=== PATIENT | female | born 1990 ===

== ENCOUNTER 2017-09-08 10:53 | Emergency (ER) | payer OTHER ==
[2017-09-08 10:54] VITALS: BMI 28.8
[2017-09-08 11:30] VITALS: BP 124/76; PULSE 78; RESP 16; TEMP 98.5; O2SAT 98
--- NOTE | 2017-09-08 12:12 | RAD ---
PROCEDURE: Right Ankle Radiographs. HISTORY: injury COMPARISON: None available. FINDINGS: BONES: No acute displaced fracture. JOINTS: No dislocation. SOFT TISSUES: Mild soft tissue swelling. No evidence of radiopaque foreign body. OTHER FINDINGS: None. IMPRESSION: Mild soft tissue swelling. No acute displaced fracture, dislocation, or significant joint effusion identified. If symptoms persist or if there is clinical concern, x-ray follow-up in 7-10 days should be considered.
--- NOTE | 2017-09-08 12:24 | C.PDOC ---
History Of Present Illness 27 year old female presents to the ED via EMS for evaluation of right ankle pain that occurred prior to arrival. Patient states she was at a daycare where she accidentally twisted her ankle and is currently c/o swelling right ankle. Patient denies weakness, numbness, sensory deficit. Time Seen by Provider: 09/08/17 11:42 Chief Complaint (Nursing): Lower Extremity Problem/Injury History Per: Patient History/Exam Limitations: no limitations Onset/Duration Of Symptoms: Hrs Current Symptoms Are (Timing): Still Present Recent travel outside of the [place]: No Additional History Per: Patient - Ankle/Foot Description Of Injury: Twisted Past Medical History Reviewed: Historical Data, Nursing Documentation, Vital Signs Vital Signs: Last Vital Signs Temp 98.5 F 09/08/17 11:27 Pulse 78 09/08/17 11:27 Resp 16 09/08/17 11:27 BP 124/76 09/08/17 11:27 Pulse Ox 98 09/08/17 12:45 - Medical History PMH: No Chronic Diseases Surgical History: Tonsillectomy Family History: States: Unknown Family Hx - Social History Hx Tobacco Use: No Hx Alcohol Use: Yes Hx Substance Use: No - Immunization History Hx Tetanus Toxoid Vaccination: No Hx Influenza Vaccination: No Hx Pneumococcal Vaccination: No Review Of Systems Constitutional: Negative for: Fever, Chills Cardiovascular: Negative for: Chest Pain, Palpitations Respiratory: Negative for: Cough, Shortness of Breath Gastrointestinal: Negative for: Nausea, Vomiting, Abdominal Pain Musculoskeletal: Positive for: Foot Pain (right) Skin: Negative for: Rash Neurological: Negative for: Weakness, Numbness Physical Exam - Physical Exam Appears: Non-toxic, No Acute Distress Skin: Normal Color, Warm, Dry Head: Atraumatic, Normacephalic Eye(s): bilateral: Normal Inspection Extremity: Normal ROM, Tenderness (Lateral left malleolus ,no ecchymosis), No Calf Tenderness, Capillary Refill (< 2 seconds), No Deformity, Swelling ( minimal on right lateral malleolus) Pulses: Left Dorsalis Pedis: Normal, Right Dorsalis Pedis: Normal Neurological/Psych: Oriented x3, Normal Speech, Normal Cognition Gait: Steady ED Course And Treatment O2 Sat by Pulse Oximetry: 98 (On RA) Pulse Ox Interpretation: Normal - Other Rad Right Ankle X-Ray X-Ray: Viewed By Me, Read By Radiologist Interpretation: IMPRESSION: Mild soft tissue swelling. No acute displaced fracture, dislocation, or significant joint effusion identified. If symptoms persist or if there is clinical concern, x-ray follow-up in 7-10 days should be considered. Progress Note: Air cast was applied by CP and checked by me. Crutch walking instructions by PT. Medical Decision Making Medical Decision Making: Impression: right ankle pain and swelling Plan: * Ibuprofen 600 mg PO * Right ankle X-ray * Ice pack applied Disposition - Disposition Referrals: Champ Figueroa MD [Staff Provider] - Disposition: HOME/ ROUTINE Disposition Time: 12:44 Condition: STABLE Additional Instructions: Follow up with Orthopedist within 1-2 days. return to ED if feel worse. Prescriptions: Ibuprofen [Motrin Tab] 600 mg PO Q8 #30 tab Instructions: Ankle Sprain (ED), Ankle Stirrup Splint (ED) Forms: [employer] [facility] ([place]z), Work Excuse - Clinical Impression Clinical Impression: Ankle sprain - PA / [employer] / Resident Statement MD/DO has reviewed & agrees with the documentation as recorded. - Scribe Statement The provider has reviewed the documentation as recorded by the Scribe Lalo Pierce All medical record entries made by the Scribe were at my direction and personally dictated by me. I have reviewed the chart and agree that the record accurately reflects my personal performance of the history, physical exam, medical decision making, and the department course for this patient. I have also personally directed, reviewed, and agree with the discharge instructions and disposition.
== END 2017-09-08 13:20 | disposition home or self-care (01) ==
LOC: C.ER 10:53
DX: S93.401A Sprain of unspecified ligament of right ankle, initial encounter (principal); X50.9XXA Other and unspecified overexertion or strenuous movements or postures, initial encounter
CPT/HCPCS: 73610; 97116; 97161; 99285; G8978; G8979; G8980